=== PATIENT | female | born 1990 ===

== ENCOUNTER → 2021-08-25 11:18 | Outpatient (BNVA) | payer MEDICAID, SELFPAY | PROVIDERS: Visit Provider Advanced Practice Midwife | DX: N92.6 Irregular menstruation, unspecified (principal); Z32.01 Encounter for pregnancy test, result positive | CPT/HCPCS: 81025; 99212 ==

== ENCOUNTER 2021-09-28 09:25 | Outpatient (REF) | payer MEDICAID, SELFPAY ==
--- NOTE | ~2021-09-28 | US_ITS ---
EXAMINATION: US OB LIMITED US OB VELOCIMETRY UMBILICAL AR CLINICAL INFORMATION: Size and dates. Irregular menstruation. COMPARISON: None TECHNIQUE: Routine transabdominal imaging of the pelvis was performed. FINDINGS: There is a single, live, intrauterine fetus in variable presentation and a fundal posterior placenta. On anatomy, the visualized kidneys, bladder, stomach, and the four-chamber heart are unremarkable. On measurements: Biparietal diameter is 4.0 cm corresponding to 18 weeks 2 days. Occipital frontal diameter measures 5.1 cm corresponding to 18 weeks 2 days. Head circumference measures 14.42 cm corresponding 17 weeks 5 days. Abdominal circumference measures 11.97 cm corresponding to 17 weeks 5 days. Femoral length measures 2.55 cm corresponding to 17 weeks 6 days. The estimated weight is 0 pounds, 7 ounces/206 grams. This corresponds to the 16% percentile. S/D ratio 4.2 and 3.8. Based on the ultrasound measurements, the gestational age is 18 weeks 0 days and JORDAN of 02/27/2022. Based on LMP, the clinical gestational age is 18 weeks 0 days and JORDAN of 03/01/2022. US/US OB limited IMPRESSION: Single, live, intrauterine fetus in variable position with an ultrasound gestational age of 18 weeks 0 days with JORDAN of 02/27/2022. There is good correlation with the clinical gestational age.
--- NOTE | ~2021-09-28 | US_ITS ---
EXAMINATION: US OB LIMITED US OB VELOCIMETRY UMBILICAL AR CLINICAL INFORMATION: Size and dates. Irregular menstruation. COMPARISON: None TECHNIQUE: Routine transabdominal imaging of the pelvis was performed. FINDINGS: There is a single, live, intrauterine fetus in variable presentation and a fundal posterior placenta. On anatomy, the visualized kidneys, bladder, stomach, and the four-chamber heart are unremarkable. On measurements: Biparietal diameter is 4.0 cm corresponding to 18 weeks 2 days. Occipital frontal diameter measures 5.1 cm corresponding to 18 weeks 2 days. Head circumference measures 14.42 cm corresponding 17 weeks 5 days. Abdominal circumference measures 11.97 cm corresponding to 17 weeks 5 days. Femoral length measures 2.55 cm corresponding to 17 weeks 6 days. The estimated weight is 0 pounds, 7 ounces/206 grams. This corresponds to the 16% percentile. S/D ratio 4.2 and 3.8. Based on the ultrasound measurements, the gestational age is 18 weeks 0 days and JORDAN of 02/27/2022. Based on LMP, the clinical gestational age is 18 weeks 0 days and JORDAN of 03/01/2022. US/US OB velocimetry umbilical ar IMPRESSION: Single, live, intrauterine fetus in variable position with an ultrasound gestational age of 18 weeks 0 days with JORDAN of 02/27/2022. There is good correlation with the clinical gestational age.
== END 2021-09-28 09:26 | disposition home or self-care (01) ==
LOC: HO.US 09:25
PROVIDERS: Visit Provider Advanced Practice Midwife
DX: Z34.92 Encounter for supervision of normal pregnancy, unspecified, second trimester (principal); Z3A.18 18 weeks gestation of pregnancy
CPT/HCPCS: 76815; 76820

== ENCOUNTER → 2021-10-23 10:21 | Outpatient (BNVA) | payer MEDICAID, SELFPAY | PROVIDERS: Visit Provider Advanced Practice Midwife | DX: O09.32 Supervision of pregnancy with insufficient antenatal care, second trimester (principal); O99.012 Anemia complicating pregnancy, second trimester; D64.9 Anemia, unspecified; Z3A.21 21 weeks gestation of pregnancy | CPT/HCPCS: 99212 ==

== ENCOUNTER 2023-07-23 10:34 | Emergency (ER) | payer MEDICAID, SELFPAY ==
--- NOTE | ~2023-07-23 | CT_ITS ---
EXAMINATION: CT ABDOMEN AND PELVIS WITH CONTRAST CLINICAL INFORMATION: Flank pain and fever. COMPARISON: None available. TECHNIQUE: Multidetector volumetric images were obtained from the superior aspect of the liver through the pubic symphysis following administration 85 mL of Omnipaque 350 intravenous contrast. Sagittal and coronal reformatted images were obtained on the technologist's workstation. Oral contrast: No This CT examination was performed using dose optimization techniques as appropriate, variously including the following: *Automated exposure control *Adjustment of mA and/or kV according to patient size (this includes techniques or standardized protocols for targeted exams where dose is matched to indication/reason for exam; i.e. extremities or head) *Use of iterative reconstruction technique DLP: 400 mGy-cm FINDINGS: LUNG BASES: The visualized lung bases are unremarkable. LIVER, GALLBLADDER, AND BILIARY TREE: The liver is normal in size, shape, and attenuation. No focal hepatic lesion or biliary ductal dilatation is present. The gallbladder is unremarkable with no evidence of radiopaque gallstones, gallbladder wall thickening, or obvious pericholecystic inflammatory changes. PANCREAS: Unremarkable. SPLEEN: The spleen is unremarkable. A 1.1 cm accessory splenule at the splenic hilum. ADRENAL GLANDS: Unremarkable. KIDNEYS AND URETERS: Both kidneys are normal in size, shape and position. There are multiple hypodense cortical areas relative to normal enhancing cortex right kidney suspicious for reflux inflammatory pyelonephritis or reflux disease. The left kidney cortex is relatively unremarkable. No radiopaque calculi or hydronephrosis seen. BLADDER: Unremarkable. GASTROINTESTINAL TRACT: There is scattered stool and gas seen throughout the colon without significant distention. The small bowel loops are normal caliber. Appendix appears within normal caliber in the right mid pelvis. ABDOMINAL WALL: No significant hernia is appreciated. LYMPH NODES: Normal. VASCULAR: Unremarkable. PELVIC VISCERA: The uterus is anteverted. There are several hypodense areas posterior to upper uterus question enlargement normal ovary. The right ovary lies superior to the bladder on the right. They appear unremarkable. No free fluid in cul-de-sac seen. No abnormal pelvic or inguinal lymph nodes. OSSEOUS STRUCTURES: No lytic or sclerotic process seen. CT/CT abdomen pelvis w IV con IMPRESSION: 1. Multiple hypodense areas in the cortex of the right kidney suspicious for inflammatory pyelonephritis hand/or reflux disease. The left kidney cortical nephrogram is normal 2. Mild constipation. 3. No radiopaque urolith or hydroureteronephrosis. Fleischner guidelines were followed.
[2023-07-23 10:53] VITALS: BP 107/64; BP 132/84; PULSE 109; PULSE 88; RESP 19; TEMP 37.4; O2SAT 100; O2SAT 99; BMI 24.4
--- NOTE | 2023-07-23 11:03 | ECG_ITS ---
Test Reason : WEAKNESS Blood Pressure : / mmHG Vent. Rate : 073 BPM Atrial Rate : 073 BPM P-R Int : 136 ms QRS Dur : 082 ms QT Int : 396 ms P-R-T Axes : -04 069 034 degrees QTc Int : 436 ms Normal sinus rhythm Normal ECG No previous ECGs available Referred By: Medina Armando Electronically Signed By:Get Hardwick
--- NOTE | 2023-07-23 11:15 | ED_ITS ---
HPI - Back Pain/Injury General Chief Complaint: Back Pain/Injury Stated Complaint: NAUSEA VOMITING Time Seen by Provider: 07/23/23 10:47 Source: patient, EMS and nut grader Mode of arrival: EMS Limitations: no limitations History of Present Illness HPI Narrative: 33 yo female with PMH of c section and tubal ligation notes prior back pain x 5 years she is not on thinners no IVDA. She reports mechanical fall 5 days ago and since then has had low back pain but she at the same time developed worsening n/v fevers at home, chills. She told the RN she did not notice she had to urinate but with nut grader she notes she sits up and has pressure to pee then is in too much pain to get there. She reported bilateral leg numbness but to me she states leg cramps and overall tingling in both legs with leg spasms x 24 hours. She has not eaten in 2 days. MD elicited complaint: back pain (fevers viral syndrome) Pertinent past history: prior back pain Onset (ago): day(s) (5) Timing: constant Severity: moderate Similar Symptoms Previously: Yes Quality: throbbing Location: lumbar spine Radiation: none Exacerbating factors: movement Relieving factors: immobilization Associated symptoms: increased urinary frequency, fever and chills Treatments prior to arrival: cold therapy Work related injury: No Related Data Previous Rx's Medication Instructions Recorded vitamin with calcium 1 tab PO DAILY #30 tabs 08/25/21 no.72-iron 27 mg-folic acid 1 mg tablet ( Vitamins Plus Low Iron) levofloxacin 750 mg tablet 750 mg PO DAILY #9 tabs 07/23/23 lidocaine 5 % topical patch 1 patch topical DAILY #30 ea 07/23/23 ondansetron 4 mg disintegrating 4 mg PO Q8H PRN nausea and 07/23/23 tablet vomiting #20 tabs Allergies Allergy/AdvReac Type Severity Reaction Status Date / Time No Known Allergies Allergy Verified 10/23/21 10:27 Review of Systems 2 Review of Systems: Constitutional : No Weight loss, pos Fever, pos Chills, ENT/Mouth : No Hearing loss, No Ear Pain, No Nasal Congestion, No Sinus Pain, No Hoarseness, No sore throat, No Rhinorrhea, No Swallowing Difficulty Cardiovascular : No Chest Pain, No SOB Respiratory : No Cough, No Dyspnea Gastrointestinal : No Nausea, No Vomiting, No Diarrhea, No abdominal Pain, No Hematochezia, No Melena Genitourinary : pos Dysuria, No Urinary Frequency, No Hematuria, No Urinary Incontinence, Musculoskeletal : positive back pain Skin : No Skin Lesions, No rash Neuro : No Weakness, No Numbness, pos Paresthesias, no loss of bowel or bladder incontinence, no saddle anesthesia All other systems reviewed and are negative [facility] Past Medical History Source: old records reviewed Medical History Migraine with aura Family History Family History (Updated 10/23/21 @ 11:30 by Joselin Bradley LPN) Maternal Grandmother HX: breast cancer Social History Social History Alcohol intake: never Patient Tobacco Use Status: Never used Tobacco Special froylan needs: No Agree to transfusion: Yes Advance Directives: No Advance Directives Information Provided: Yes Gender identity: Female Physical Exam 2 Vital Signs: Vital Signs: Last Vital Signs Temp 99.2 F 07/23/23 15:40 Pulse 89 07/23/23 15:40 Resp 16 07/23/23 15:40 BP 125/64 07/23/23 15:40 Pulse Ox 100 07/23/23 15:40 O2 Del Method Room Air 07/23/23 15:40 BMI result Body Mass Index 24.4 Appearance: Alert. Oriented X3. Anxious mild acute distress. Eyes: Pupils equal, round and reactive to light. ENT: Pharynx dry MM Neck: Normal inspection. Neck supple. CVS: Normal heart rate and rhythm. Pulses normal. Respiratory: No respiratory distress. Breath sounds normal. Abdomen: Soft and nontender. Back: ttp along lower lumbar spine no step offs Rectal: normal tone Skin: Skin warm and dry. Normal skin color. Normal skin turgor. Extremities: No lower extremity edema. No calf ttp Neuro: Oriented X 3. No motor deficit. No sensory deficit. SILT intact sensation intact 2+ radial pulses, no clonus 2+ reflexes patella as well as achilles Course Course Course Narrative: up and walking around no issues Reevaluation(s) Reevaluation #1: 215pm at this time possible infection suspected IV ceftriaxone ordered. Medications Administered Discontinued Medications Generic Name Dose Route Start Last Admin Trade Name Freq PRN Reason Stop Dose Admin Sodium Chloride 1,000 mls @ 999 mls/hr 07/23/23 11:15 07/23/23 15:21 Ns IVCONT 07/23/23 13:15 Infused .Q1H1M AUGUSTINE Infusion Ceftriaxone Sodium 1 gm/ 50 mls @ 100 mls/hr 07/23/23 14:14 07/23/23 15:21 Sodium Chloride IV 07/23/23 14:43 Infused ONCE ONE Infusion Iohexol 100 ml 07/23/23 13:07 07/23/23 13:07 Iohexol 350 Mg/Ml 100 Ml Infus..Btl IV 07/23/23 13:08 85 ml ONCE ONE Administration Ketorolac Tromethamine 15 mg 07/23/23 11:03 07/23/23 12:18 Ketorolac Tromethamine 15 Mg/Ml Vial IVPUSH 07/23/23 11:04 15 mg ONCE ONE Administration Morphine Sulfate 4 mg 07/23/23 11:03 07/23/23 12:18 Morphine Sulfate 4 Mg/Ml Cartridge IVPUSH 07/23/23 11:04 4 mg ONCE ONE Administration Protocol Ondansetron HCl 4 mg 07/23/23 11:03 07/23/23 12:18 Ondansetron Hcl 4 Mg/2 Ml Vial IVPUSH 07/23/23 11:04 4 mg ONCE ONE Administration Potassium Chloride 40 meq 07/23/23 12:13 07/23/23 13:51 Potassium Chloride Packet 20 Meq Packet PO 07/23/23 12:14 40 meq ONCE ONE Administration Medical Decision Making Medical Decision Making [facility] Narrative: 33 yo female with multiple complaints including back pain after a fall her triage has some concerning reports but with nut grader reports incontinence due to pain and not being able to make it to the bathroom her sensation is intact, reflexes, she is moving her legs she has normal rectal tone. She at the same time developed viral like syndrome vs pyelonephritis - she will need labs, viral panel, IVF, IV morphine for pain, CT scan for fracture/renal colic. Differential Diagnosis Differential Diagnoses: The differential diagnosis associated with the presentation includes viral syndrome, fracture, renal colic Admission/Observation Consideration of admission/observation: Escalation of care including admission/observation considered no wbc count, tolerating PO neg lactic acid up and walking no cauda equina symptoms can be managed as outpatient tolerating PO Lab Data [facility] Lab Attestation statement: I reviewed the patient's lab results. 07/23/23 11:43 07/23/23 11:43 Labs: Lab Results 07/23/23 07/23/23 07/23/23 Range/Units 11:43 13:50 13:51 WBC 9.4 (4.8-10.8) X10*3/uL RBC 4.83 (4.20-5.50) X10*6/uL Hgb 13.1 (12.0-16.0) g/dl Hct 39.2 (37.0-47.0) % MCV 81.2 (80.0-98.0) fL MCH 27.1 (27.0-33.0) pg MCHC 33.4 (31.0-35.0) g/dl RDW 12.4 (11.0-16.0) % Plt Count 115 L (160-400) X10*3/uL MPV 11.2 (9.4-12.3) fL Immature Gran % (Auto) 0.4 (0.0-0.4) % Neut % (Auto) 81.8 H (45-73) % Lymph % (Auto) 8.9 L (20-40) % [place] % (Auto) 8.7 (2-11) % Eos % (Auto) 0.0 (0-4) % Baso % (Auto) 0.2 (0-2) % Lymph # (Auto) 0.8 L (1.2-4.9) X10*3/uL [place] # (Auto) 0.8 (0.1-1.2) X10*3/uL Eos # (Auto) 0.0 (0.0-0.4) X10*3/uL Baso # (Auto) 0.0 (0.0-0.2) X10*3/uL Abs Immat Gran (auto) 0.04 H (0.00-0.03) X10*3/uL Absolute Neuts (auto) 7.7 (2.0-8.3) x10*3/uL Absolute Nucleated RBC 0.000 (0.0-0.012) X10*3/uL Nucleated RBC % (auto) 0.0 (0.0-0.2) /100WBC Sodium 136 (135-145) mmol/L Potassium 3.0 L (3.3-5.1) mmol/L Chloride 100 (96-108) mmol/L Carbon Dioxide 20 L (22-29) mmol/L Anion Gap 19 (12-20) BUN 14 (9-16) mg/dL Creatinine 1.00 (0.5-1.4) mg/dL Estim Creat Clear Calc 67.4 Estimated GFR > 60 Random Glucose 107 (60-115) mg/dL Lactic Acid 1.1 (0.5-2.0) mmol/L Calcium 9.4 (8.4-10.2) mg/dL Magnesium 1.6 (1.6-2.6) mg/dL Total Bilirubin 0.9 (0.0-1.0) mg/dL Direct Bilirubin 0.5 (0.0-0.5) mg/dL AST 25 (5-31) U/L ALT 24 (0-31) U/L Alkaline Phosphatase 65 (39-117) U/L Total Protein 7.9 (6.5-8.0) g/dL Albumin 4.1 (3.5-5.0) g/dL Lipase 8 (8-78) U/L Beta HCG, Quant < 2 mIU/mL Urine Color Yellow Urine Appearance Turbid Urine pH 6.0 (5.0-9.0) Ur Specific [place] 1.025 (1.005-1.025) Urine Protein Trace (Neg-Trace) mg/dL Urine Glucose (UA) Negative (Negative) mg/dL Urine Ketones 15 (Negative) mg/dL Urine Blood Large (3+) H (Negative) Urine Nitrite Positive H (Negative) Ur Leukocyte Esterase Large (3+) H (Negative) Urine RBC 3-5 H (0-2) /HPF Urine WBC >50 H (0-5) /HPF Ur Squamous Epith Cells 11-20 (0-2) /HPF Urine Bacteria 4+ (None Seen) Hyaline Casts 3-5 (0-2) /LPF Influenza Type A (PCR) NEGATIVE (Negative) Influenza Type B (PCR) NEGATIVE (Negative) RSV RNA Qual (PCR) NEGATIVE (Negative) SARS-CoV-2 RNA (RT-PCR) NEGATIVE (Negative) Independent Interpretation I performed an independent interpretation of an: EKG and CT Scan (+ pyelo) Interpretation: Rate: 73 Rhythm: NSR [place]: normal Normal P waves. Normal DEVI. Normal QRS complex. ST T wave : normal no JASON qTC: 436 prior studies: no acute ischemia The study has been interpreted contemporaneously by me. . Radiology Impression Discussion of test interpretation with radiology: I have reviewed the radiologist's reading. Independent Historian Clinical information obtained from an independent historian. History obtained from or confirmed by: EMS Prescription Management I considered prescription management with: Antibiotic and Other Critical Care Time Critical Care Time Critical Care Time: Yes Total Critical Care Time: 45 Attestation: IV morphine with improvement in pain, 2L of IVF, repeat assessments. I attest to this time spent taking care of the patient Discharge Plan Discharge Clinical Impression: Acute hypokalemia, Pyelonephritis Patient Disposition: Home, Self-Care Instructions: Hypokalemia (ED), Kidney Infection (ED), Acute Low Back Pain (ED) Additional Instructions: return for worsening pain, inability to eat or drink, vomiting or any other concerns. Prescriptions: New levofloxacin 750 mg tablet 750 mg PO DAILY Qty: 9 0RF ondansetron 4 mg tablet,disintegrating 4 mg PO Q8H PRN (Reason: nausea and vomiting) Qty: 20 0RF lidocaine 5 % adhesive patch,medicated 1 patch topical DAILY Qty: 30 0RF Rx Instructions: leave on most painful area for up to 12 hrs No Action Vitamin Plus Low Iron 27 mg iron- 1 mg tablet 1 tab PO DAILY Qty: 30 11RF Print Language: French
[2023-07-23 11:50] LABS: MANUAL DIFF FLAG NO
[2023-07-23 12:01] LABS: Lactic Acid 1.1 mmol/L (0.5-2.0)
[2023-07-23 12:04] LABS: Alanine Aminotransferase 24 U/L (0-31); Albumin Level 4.1 g/dL (3.5-5.0); Alkaline Phosphatase 65 U/L (39-117); Anion Gap 19 (12-20); Aspartate Amino Transferase 25 U/L (5-31); Bilirubin Direct 0.5 mg/dL (0.0-0.5); Bilirubin Total 0.9 mg/dL (0.0-1.0); Blood Urea Nitrogen 14 mg/dL (9-16); Calcium 9.4 mg/dL (8.4-10.2); Carbon Dioxide 20 mmol/L (22-29); Chloride 100 mmol/L (96-108); Creatinine Clr Calc Pharmacy 67.4; Estimated Glomerular Filt Rate > 60; Glucose Random 107 mg/dL (60-115); Lipase 8 U/L (8-78); Magnesium 1.6 mg/dL (1.6-2.6); Sodium 136 mmol/L (135-145); Total Protein 7.9 g/dL (6.5-8.0)
[2023-07-23 12:13] LABS: HCG Quantitative < 2 mIU/mL
[2023-07-23] MEDS: Ketorolac Tromethamine 15 MG/ML VIAL IVPUSH (12:18)
[2023-07-23] MEDS: ondansetron HCL 4 MG/2 ML VIAL IVPUSH (12:18)
[2023-07-23] MEDS: Morphine Sulfate 4 MG/ML CARTRIDGE IVPUSH (12:18)
[2023-07-23] MEDS: 0.9 % Sodium Chloride 1,000 ML 999 ML IVCONT ×2 (12:19→13:19)
[2023-07-23 12:43] LABS: Basophils Percent Auto 0.2 % (0-2); Hematocrit 39.2 % (37.0-47.0); Hemoglobin 13.1 g/dl (12.0-16.0); Imm Gran Abs Auto 0.04 X10*3/uL (0.00-0.03); Imm Gran Pct Auto 0.4 % (0.0-0.4); Lymphocytes Absolute Auto 0.8 X10*3/uL (1.2-4.9); Lymphocytes Percent Auto 8.9 % (20-40); Mean Corpuscular HGB Conc 33.4 g/dl (31.0-35.0); Mean Corpuscular Hemoglobin 27.1 pg (27.0-33.0); Mean Corpuscular Volume 81.2 fL (80.0-98.0); Mean Platelet Volume 11.2 fL (9.4-12.3); Monocytes Absolute Auto 0.8 X10*3/uL (0.1-1.2); Monocytes Percent Auto 8.7 % (2-11); Neutrophils Absolute Auto 7.7 x10*3/uL (2.0-8.3); Neutrophils Percent Auto 81.8 % (45-73); Platelet Count 115 X10*3/uL (160-400); Red Blood Count 4.83 X10*6/uL (4.20-5.50); Red Cell Distribution Width 12.4 % (11.0-16.0); White Blood Count 9.4 X10*3/uL (4.8-10.8)
[2023-07-23] MEDS: iohexoL 350 MG/ML 100 ML INFUS..BTL IV (13:07)
[2023-07-23] MEDS: Potassium Chloride Packet 20 MEQ PACKET 40 MEQ PO (13:51)
--- NOTE | 2023-07-23 13:51 | PC.NURSE ---
patient ambulated with steady gait to the bathroom
[2023-07-23 14:12] LABS: Appearance Urine Turbid; Color Urine Yellow; Glucose Urine UA Negative (Negative); Leukocyte Esterase Urine Large (3+) (Negative); Nitrite Urine Positive (Negative); Specific Gravity - Urine 1.025 (1.005-1.025); UMIC TRIGGER UACC YES; Urine Blood Large (3+) (Negative); Urine Ketones 15 mg/dL (Negative); Urine Protein Trace mg/dL (Neg-Trace)
[2023-07-23 14:26] LABS: Bacteria Urine 4+ (None Seen); UACC Culture Trigger YES; WBC Urine >50 /HPF (0-5)
[2023-07-23] MEDS: cefTRIAXone sodium 1 GM in 0.9 % Sodium Chloride 50 ML IV (14:34)
[2023-07-23 14:38] LABS: Influenza A PCR NEGATIVE (Negative); Influenza B PCR NEGATIVE (Negative); Resp Syncy Virus RNA Qual PCR NEGATIVE (Negative); SARS COV2 PCR INHOUSE NEGATIVE (Negative)
--- NOTE | 2023-07-23 15:20 | PC.NURSE ---
patient given ham sandwich, tolerated po challenge
[2023-07-23 15:40] VITALS: BP 125/64; PULSE 89; RESP 16; TEMP 37.3; O2SAT 100
--- NOTE | 2023-07-23 15:59 | PC.NURSE ---
patient iv removed, ambulated to pt bathroom to change, steady gait off of unit
== END 2023-07-23 15:59 | disposition home or self-care (01) ==
PROVIDERS: Emergency Provider Emergency Medicine
DX: N12 Tubulo-interstitial nephritis, not specified as acute or chronic (principal); E87.6 Hypokalemia; R11.2 Nausea with vomiting, unspecified; R53.1 Weakness; M54.50 Low back pain, unspecified; Z79.899 Other long term (current) drug therapy; Z11.52 Encounter for screening for COVID-19; Z20.822 Contact with and (suspected) exposure to COVID-19
CPT/HCPCS: 0241U; 36415; 74177; 80048; 80076; 81001; 81003; 83605; 83690; 83735; 84702; 85025; 87040; 87077; 87086; 87088; 87186; 87205; 93005; 96361; 96374; 96375; 99284; J0696; J1885; J2270; J2405; Q9967

== ENCOUNTER → 2023-07-23 11:03 | Outpatient (BNV) | payer MEDICAID, SELFPAY | PROVIDERS: Emergency Provider Emergency Medicine; Visit Provider Internal Medicine Cardiovascular Disease | DX: R53.1 Weakness (principal) | CPT/HCPCS: 93010 ==

== ENCOUNTER 2023-08-14 10:11 | Outpatient (REF) | payer MEDICAID, SELFPAY ==
[2023-08-14 12:09] LABS: Anion Gap 10 (12-20); Blood Urea Nitrogen 10 mg/dL (9-16); Calcium 9.1 mg/dL (8.4-10.2); Carbon Dioxide 27 mmol/L (22-29); Chloride 106 mmol/L (96-108); Estimated Glomerular Filt Rate > 60; Glucose Random 90 mg/dL (60-115); Potassium 4.1 mmol/L (3.3-5.1); Sodium 139 mmol/L (135-145)
== END 2023-08-14 10:12 | disposition home or self-care (01) ==
LOC: HO.HHCL 10:11
PROVIDERS: Visit Provider Internal Medicine Geriatric Medicine
DX: E87.6 Hypokalemia (principal)
CPT/HCPCS: 36415; 80048

== ENCOUNTER 2024-01-23 10:56 | Outpatient (REF) | payer MEDICAID, SELFPAY ==
[2024-01-23 17:02] LABS: Urine Cytology See Pathology rpt
== END 2024-01-23 10:57 | disposition home or self-care (01) ==
LOC: HO.LNP 10:56
PROVIDERS: PCP Internal Medicine Geriatric Medicine; Visit Provider Nurse Practitioner Family
DX: F12.20 Cannabis dependence, uncomplicated (principal); R31.29 Other microscopic hematuria; N39.0 Urinary tract infection, site not specified
CPT/HCPCS: 51798; 81003; 88112; 99212

== ENCOUNTER 2024-01-23 10:56 | Outpatient (AMB) | payer MEDICAID, SELFPAY ==
--- NOTE | 2024-01-23 11:18 | A.OFFVIS_ITS ---
Intake Visit Reasons: recurrent UTI, hematuria Intake Note: New Patient presents for initial visit for recurrent uti and hematuria Urology Medications: none Blood Thinner: none Smoker: yes PVR: 0ml's Sales Engineering Manager Required: Yes Sales Engineering Manager Services: Sales Engineering Manager Present Sales Engineering Manager Name: Tyrel [id number] Accompanied by: Self / Same As Patient Allergies No Known Allergies Allergy (Verified 01/23/24 23:07) Medication List - Last Reconciled 01/23/24 by ALEN eLon No Known Home Meds HPI Comments Details: Mason is a very pleasant 33-year-old Bulgarian-speaking female patient of Dr. Mcmillan. She has a past medical history of recurrent urinary tract infections, microscopic hematuria, and migraines with aura. She presents to the office today as a new patient for recurrent urinary tract infections. In discussion w ith the patient today she reports a longstanding history of recurrent urinary tract infections for most of her life. She reports when living in [place] she seeked emergency room care many of times for UTI like symptoms and was treated for many urinary tract infections. She reports having seeked emergency room care approximately 6 months ago for lower urinary tract symptoms and flank pain she had been experiencing at which time a CT of the abdomen was ordered and performed. These results were reviewed with the patient today. 07/20 both kidneys are normal in size, shape, and position. There are multiple hypodense cortical areas relative to normal enhancing cortex right kidney suspicious for reflux inflammatory pyelonephritis or reflux disease. The left kidney is relatively unremarkable. No renal calculi or hydronephrosis seen. The bladder is unremarkable. She reports having completed antibiotic therapy as prescribed by ER physician and has had no bothersome urinary issues or concerns since. In office urinalysis results reviewed with the patient today. Microscopic hematuria noted. She does report a longstanding history of recreational marijuana for many years. She denies any known workplace chemical exposure. PVR 0 mL. We discussed at length potential causes of recurrent urinary tract infections as well as microscopic hematuria. When asked she denies urinary urgency, urinary frequency, incontinence, nocturia, visible/gross hematuria, dysuria, foul smelling urine, changes to urinary stream, flank pain, fever, and or chills. She is happy with her current voiding parameters. She otherwise offers no other issues or concerns at this time. [facility] Medical History Microscopic hematuria Migraine with aura Family History Maternal Grandmother HX: breast cancer Social History Alcohol intake: never Patient Tobacco Use Status: Never used Tobacco Special froylan needs: No Agree to transfusion: Yes Gender identity: Female Female Reproductive History Menstrual Age of Menarche: 14 Review of Systems Const All systems reviewed & are unremarkable except as noted in HPI and below Physical Exam Const General: cooperative, healthy appearing, comfortable, no acute distress, well developed, alert and awake Orientation/consciousness: patient oriented x3 Limitations: no limitations HEENT Head: Yes normal to inspection, Yes normocephalic and Yes atraumatic Ears: hearing grossly normal bilaterally Eyes General: appearance normal, both eyes and all related structures Neck Neck: Yes normal visual inspection and Yes trachea midline Chest Chest palpation & inspection: normal inspection of the chest Resp Effort & Inspection: normal respiratory effort and able to speak in complete sentences Cardio Rate: regular rate GI Inspection: Yes normal to inspection General: Yes no CVA tenderness Back/Spine/Pelvis Back: no CVA tenderness Skin General skin exam: no rashes or lesions noted Neuro General: patient oriented x3 Extrem General: Yes normal to inspection Psych Appearance: grossly normal and well kempt Mental Status: mental status grossly normal Speech and movement: Normal speech and movement present and Clear speech present Affect: normal affect Attitude: cooperative Thought process: Normal thought process present Thought content: Normal thought content present Insight: Fair insight present (Psych) Judgement: Fair judgement present (Psych) Office Procedures Post Void Residual Post Residual Void Post Void Residual (PVR): 0 [id number]-Fccu Void Residual by ultrasound Results AMB Urinalysis, Automated UA Leukoctes 0 Nicko/uL Last Edit by Celine Diamond on 01/23/24 11:30 UA Nitrite Last Edit by Celine Diamond on 01/23/24 11:30 UA Urobilinogen 0.2 mg/dL Last Edit by Celine Diamond on 01/23/24 11:30 UA Protein 0 mg/dL Last Edit by Celine Diamond on 01/23/24 11:30 UA pH 6.0 Last Edit by Celine Diamond on 01/23/24 11:30 UA Blood 10 Theron/uL Last Edit by Celine Diamond on 01/23/24 11:30 UA Specific [place] 1.025 Last Edit by Celine Diamond on 01/23/24 11:30 UA Ketone Last Edit by Celine Diamond on 01/23/24 11:30 UA Bilirubin 0 mg/dL Last Edit by Celine Diamond on 01/23/24 11:30 UA Glucose 0 mg/dL Last Edit by Celine Diamond on 01/23/24 11:30 Results Reviewed Results Reviewed: Laboratory Last Values Urine pH (Auto) 6.0 01/23/24 11:21 Specific [place] (Auto) 1.025 01/23/24 11:21 Urine Protein (Auto) 0 mg/dL 01/23/24 11:21 Glucose (UA)(Auto) 0 mg/dL 01/23/24 11:21 Urine Blood (Auto) 10 Theron/uL 01/23/24 11:21 Urine Bilirubin (Auto) 0 mg/dL 01/23/24 11:21 Urine Urobilinogen (Auto) 0.2 mg/dL 01/23/24 11:21 Leukocyte Esterase (Auto) 0 Nicko/uL 01/23/24 11:21 Date of Service: 07/23/23 EXAMINATION: CT ABDOMEN AND PELVIS WITH CONTRAST FINDINGS: LUNG BASES: The visualized lung bases are unremarkable. LIVER, GALLBLADDER, AND BILIARY TREE: The liver is normal in size, shape, and attenuation. No focal hepatic lesion or biliary ductal dilatation is present. The gallbladder is unremarkable with no evidence of radiopaque gallstones, gallbladder wall thickening, or obvious pericholecystic inflammatory changes. PANCREAS: Unremarkable. SPLEEN: The spleen is unremarkable. A 1.1 cm accessory splenule at the splenic hilum. ADRENAL GLANDS: Unremarkable. KIDNEYS AND URETERS: Both kidneys are normal in size, shape and position. There are multiple hypodense cortical areas relative to normal enhancing cortex right kidney suspicious for reflux inflammatory pyelonephritis or reflux disease. The left kidney cortex is relatively unremarkable. No radiopaque calculi or hydronephrosis seen. BLADDER: Unremarkable. GASTROINTESTINAL TRACT: There is scattered stool and gas seen throughout the colon without significant distention. The small bowel loops are normal caliber. Appendix appears within normal caliber in the right mid pelvis. ABDOMINAL WALL: No significant hernia is appreciated. LYMPH NODES: Normal. VASCULAR: Unremarkable. PELVIC VISCERA: The uterus is anteverted. There are several hypodense areas posterior to upper uterus question enlargement normal ovary. The right ovary lies superior to the bladder on the right. They appear unremarkable. No free fluid in cul-de-sac seen. No abnormal pelvic or inguinal lymph nodes. OSSEOUS STRUCTURES: No lytic or sclerotic process seen. IMPRESSION: 1. Multiple hypodense areas in the cortex of the right kidney suspicious for inflammatory pyelonephritis hand/or reflux disease. The left kidney cortical nephrogram is normal 2. Mild constipation. 3. No radiopaque urolith or hydroureteronephrosis. Assessment & Plan Assessment & Plan (1) Marijuana dependence: Code(s): F12.20 - Cannabis dependence, uncomplicated Category: Medical (2) Microscopic hematuria: Code(s): R31.29 - Other microscopic hematuria Category: Medical (3) Recurrent urinary tract infection: Code(s): N39.0 - Urinary tract infection, site not specified Category: Medical Plan In office urinalysis results reviewed with the patient today; as noted above; will send for urine cytology. PVR [address] results reviewed with the patient today; as noted above. We discussed at length potential causes of microscopic hematuria as well as recurrent urinary tract infections. Discussed UTI prevention with D mannose supplement, vitamin-C, increasing fluid intake, behavioral therapy with timed voiding, perineal hygiene and postcoital voiding, and management of constipation with stool softeners and increased fiber intake. Discussed obtaining retroperitoneal ultrasound for further assessment evaluation. Discussed further microscopic hematuria versus surveillance monitoring; risks and benefits of these interventions were discussed. Patient currently denies any UTI like symptoms. She reports be happy with current voiding parameters. Follow-up in office cystoscopy with imaging to be completed prior; or sooner with any issues, concerns, and or questions. Orders: Orders AMB Post Void Residual by ultrasound Today Z13.9 - Encounter for screening, unspecified US retroperitoneal comp Today N39.0 - Urinary tract infection, site not specified Urine Cytology Today F12.20 - Cannabis dependence, uncomplicated, R31.29 - Other microscopic hematuria AMB Urinalysis Automated Today Z13.9 - Encounter for screening, unspecified Patient Instructions: The patient had an opportunity to ask questions regarding the treatment plan. All questions were answered. Physical exam, labs, and imaging were discussed and reviewed in detail. As well as risks, benefits, and discussion of treatment choices. No major barriers to understanding were identified. The patient expressed understanding and agreement with the above treatment plan. The patient was made aware they should contact our office by phone for worsening of their current condition, the appearance of new symptoms, or with any questions or concerns. Compliance is encouraged with any medications and follow up testing that is ordered. It is a privilege to be allowed the opportunity to participate in? your urological care.? Again, if you have any questions or concerns If you have any questions or concerns please do not hesitate to contact me. The office is [phone]. This note is constructed using voice recognition software. While every effort has been made to ensure accuracy childcare teacher errors may have been included. Yours sincerely, ALEN Leon Coding Level of Care Code New Pt Level 4 (17077) Diagnoses Marijuana dependence F12.20 Microscopic hematuria R31.29 Recurrent urinary tract infection N39.0 CPT Codes Post Residual Void - PVR CPT Code: 81411-Btkj Void Residual by ultrasound ([id number]) Time Spent (min) 35
== END 2024-01-23 12:01 | disposition home or self-care (01) ==
PROVIDERS: PCP Internal Medicine Geriatric Medicine; Visit Provider Nurse Practitioner Family
DX: F12.20 Cannabis dependence, uncomplicated (principal); R31.29 Other microscopic hematuria; N39.0 Urinary tract infection, site not specified
CPT/HCPCS: 99204

== ENCOUNTER 2024-02-19 10:02 | Outpatient (REF) | payer MEDICAID, SELFPAY | END 2024-02-19 10:03 | disposition home or self-care (01) | LOC: HO.US 10:02 | PROVIDERS: PCP Internal Medicine Geriatric Medicine; Visit Provider Nurse Practitioner Family | DX: N39.0 Urinary tract infection, site not specified (principal) | CPT/HCPCS: 76775 ==

== ENCOUNTER 2024-03-04 13:25 | Outpatient (REF) | payer MEDICAID, SELFPAY | END 2024-03-04 13:26 | disposition home or self-care (01) | LOC: HO.US 13:25 | PROVIDERS: PCP Internal Medicine Geriatric Medicine; Visit Provider Nurse Practitioner Family | DX: Z13.89 Encounter for screening for other disorder (principal) ==